=== PATIENT | female | born 1965 | race Caucasian/White ===

== ENCOUNTER 2017-05-31 20:11 | Emergency (ER) | payer OTHER ==
[2017-05-31] MEDS ORDERED: IBUPROFEN 600 MG TAB PO ONE (20:32)
[2017-05-31] MEDS ORDERED: ACETAMINOPHEN 500 MG TAB PO ONE (20:33)
--- NOTE | 2017-05-31 20:41 | EDPHY ---
H & P Time Seen by Provider: 05/31/17 20:25 HPI/ROS: This patient with history of mild MS tripped on an irregularity in the sidewalk shortly prior to her arrival-mechanical fall with injury to her right hand-pain at the proximal 5th metacarpal. She also has mild wrist pain but she states that the hand pain is 6/10. She is unable to push off with a hand thereafter and has worsening pain with movement of her 5th finger. She sustained a superficial abrasion to her chin and left knee from the fall as well but denies any other injuries. She is accompanied by her who brought her in by private vehicle for evaluation. The incident occurred shortly prior to arrival. ROS: Constitutional: She felt well prior to this fall HEENT: She just had braces removed today. She denies any intraoral injuries from the fall. No mandible pain. Pulmonary: No shortness of breath chest pain Cardiovascular: No pallor to the affected hand. Neuro: No new numbness or tingling. Musculoskeletal: No neck or back pain. 7 point ROS is otherwise negative Smoking Status: Never smoked Physical Exam: Physical Exam Vital signs are normal. General: No acute distress HEENT: Atraumatic except for a very superficial abrasion to the chin that is not bleeding. No underlying bony tenderness. Intraoral exam is atraumatic. Eyes: Pupils equal and react to light. Extraocular motions are intact. Neck: Nontender Lungs: No respiratory distress. Back: Nontender Cardiac: Brisk capillary refill is intact throughout. Pulses are 2+ and symmetric in the affected extremity. Abdomen: Nontender Skin: No rash or pallor. Extremities: Atraumatic except for right hand Right upper extremity: Right hand: Patient has tenderness to the proximal 5th metacarpal mild swelling. She also has tenderness to the dorsum of the hand at the 4th metacarpal region. Appreciate no significant malrotation to the 4th or 5th finger. Very minimal tenderness to the dorsum of the wrist. No ecchymosis or swelling to the wrist. No anatomical snuffbox tenderness to the wrist. No significant elbow or shoulder tenderness. Neuro: Alert with no sensorimotor deficits in the affected extremity. Initial differential diagnosis: Hand fracture versus contusion versus sprain. Constitutional: Initial Vital Signs Temperature (C) 37.1 C 05/31/17 20:20 Heart Rate 80 05/31/17 20:20 Respiratory Rate 16 08/10/17 20:20 Blood Pressure 136/89 H 05/31/17 20:20 O2 Sat (%) 98 05/31/17 20:20 O2 Delivery Mode Room Air Allergies/Adverse Reactions: trazodone Allergy (Verified 05/31/17 20:24) Home Medications: Medication Instructions Recorded Celexa 05/31/17 Plegridy 05/31/17 Xanax 05/31/17 MDM/Departure - MDM Diagnostics: Hand x-ray: Negative for fracture by my interpretation. I also appreciate no abnormalities to the wrist in the views that are available in the hand x-ray. Imaging: I viewed and interpreted images myself Medications Given: Discontinued Medications Acetaminophen (Tylenol) 1,000 mg PO EDNOW ONE Stop: 05/31/17 20:34 Last Admin: 05/31/17 20:37 Dose: 1,000 mg Ibuprofen (Motrin) 600 mg PO EDNOW ONE Stop: 05/31/17 20:33 Last Admin: 05/31/17 20:37 Dose: 600 mg ED Course/Re-evaluation: I counseled patient regarding hand contusion and wrist sprain. We placed her in a Velcro wrist splint. I also discussed the radiograph with Dr. Stokes , radiologist to confirm no fractures based on patient's request. - Depart Disposition: Home, Routine, Self-Care Clinical Impression: Right wrist sprain Qualifiers: Encounter type: initial encounter Qualified Code(s): S63.501A - Unspecified sprain of right wrist, initial encounter Hand contusion Qualifiers: Encounter type: initial encounter Laterality: right Qualified Code(s): S60.221A - Contusion of right hand, initial encounter Condition: Good Instructions: Wrist Sprain (ED) Additional Instructions: Diagnoses: 1. Wrist sprain 2. Hand contusion 3. Abrasions Plan: Clean abrasion daily with warm soapy water Ibuprofen and Tylenol for pain Splint until symptoms improve-likely 5-10 days. Follow up with orthopedic physician listed below if you have significant ongoing symptoms despite the treatment plan. Referrals: MARIA VICTORIA GONZALES [Primary Care Provider] - As per Instructions Ladarius Lofton MD [Medical Doctor] - As per Instructions
[2017-05-31 21:14] VITALS: BP 135/75; PULSE 82; RESP 18; TEMP 98.6; O2SAT 95
== END 2017-05-31 21:10 | disposition home or self-care (01) ==
LOC: CED 20:11
DX: S63.501A Unspecified sprain of right wrist, initial encounter (principal); S60.221A Contusion of right hand, initial encounter; W10.1XXA Fall (on)(from) sidewalk curb, initial encounter; Y92.480 Sidewalk as the place of occurrence of the external cause
CPT/HCPCS: 73130-PO; L3908